=== PATIENT | male | born 1985 | race Two or more races ===

== ENCOUNTER 2016-10-17 05:21 | Inpatient (IN) | payer MEDICAID ==
[2016-10-17] VITALS (11 sets, daily range): BP systolic 124–172; BP diastolic 67–96; PULSE 46–166; RESP 11–26; TEMP 96.8–98.2; O2SAT 97–100
[~2016-10-17] VITALS: Ht 177.8 cm; Wt 126.1 kg
--- NOTE | 2016-10-17 05:22 | NUR ---
Patient AAO x4, sitting in bed, c/o left sided chest pain, non-radiating x 2 hrs. Patient states he was sleeping and the chest pain woke him up and he felt "alot of pressure" and nausea. Patient states he has had a cold in the past week. Patient is pale, and HR is tachycardic at 166bpm. Md notified. Will medicate per md orders.
--- NOTE | 2016-10-17 05:22 | NUR ---
Placed in room 02 . Placed on cardiac catheterization technologist, blood pressure machine and pulse oximeter. To gown for exam. Side rails up. Report given to SHAHEEN Valencia.
--- NOTE | 2016-10-17 05:25 | NUR ---
Patient stating he no longer has chest pain, states is more discomfort and the pain "went away." Patient HR remains tachycardic. Md aware.
--- NOTE | 2016-10-17 05:30 | NUR ---
CONOR Lopez at bedside examining patient.
[2016-10-17] MEDS ORDERED: METOPROLOL TARTRATE 5 MG/5 ML VIAL ONE (05:37)
[2016-10-17] MEDS ORDERED: METOPROLOL TARTRATE 5 MG/5 ML VIAL IVP ONE ×2 (05:45)
[2016-10-17 05:53] LABS: CALCIUM 9.3 mg/dL (8.4-11.0); CREATININE 0.96 mg/dL (0.55-1.30)
[2016-10-17 05:59] LABS: ALBUMIN 3.9 g/dL (3.4-4.8); TOTAL BILIRUBIN 0.4 mg/dL (0.0-1.0); TOTAL PROTEIN, SERUM 8.1 g/dL (6.4-8.3)
[2016-10-17 06:00] LABS: HEMATOCRIT 44.8 % (36-54); HEMOGLOBIN 15.2 g/dL (14.0-18.0); LYMPHOCYTES % (AUTO) 37.9 % (20.5-51.5); MEAN CORPUSCULAR HEMOGLOBIN 29 pg (27-31); MEAN CORPUSCULAR HGB CONC 34 % (32-36); MEAN CORPUSCULAR VOLUME 85 fL (79.0-98.0); MONOCYTES % (AUTO) 10.9 % (1.7-9.3); PLATELET COUNT (AUTO) 281 K/uL (130-430); RED BLOOD CELL COUNT(AUTO) 5.27 MIL/uL (4.2-6.2); RED CELL DISTRIBUTION WIDTH 13.1 % (9.0-15.0); WHITE BLOOD COUNT (AUTO) 8.1 K/uL (4.8-10.8)
[2016-10-17 06:01] LABS: BASOPHILS % (AUTO) 0.3 % (0.0-2.0); EOSINOPHILS # (AUTO) 0.3 K/uL (0.0-0.4); EOSINOPHILS % (AUTO) 3.1 % (0.0-4.0); LYMPHOCYTES # (AUTO) 3.1 K/uL (1.0-5.5); MONOCYTES # (AUTO) 0.9 K/uL (0.0-1.0); NEUTROPHILS # (AUTO) 3.8 K/uL (1.8-7.7); NEUTROPHILS % (AUTO) 47.8 % (40.0-70.0)
[2016-10-17 06:03] LABS: PROTHROMBIN TIME 10.6 SECS (9.5-12.5)
[2016-10-17] MEDS ORDERED: AMIODARONE HCL 150 MG/3ML VIAL ONE (06:04)
--- NOTE | 2016-10-17 06:29 | NUR ---
Patient amiodarone drip completed. Patient tolerated well. HR: 120. MD notified. Will continue to monitor.
[2016-10-17] MEDS ORDERED: AMIODARONE HCL IV ONE (06:30)
[2016-10-17] MEDS ORDERED: D5W IV ONE (06:30)
[2016-10-17] MEDS ORDERED: AMIODARONE HCL 900 MG in D5W 500 ML IV ONE ×2 (06:45→07:00)
--- NOTE | 2016-10-17 06:45 | NUR ---
Amiodarone 900mg vial unavailable. Calling linen room houseperson and ICU to obtain medication for continued patient treatment. MD aware. Will medicate when medication is available. Patient vital signs stable. Will continue to monitor.
--- NOTE | 2016-10-17 06:55 | NUR ---
CALLED ICU FOR PLACEMENT, NOTIFIED THERE ARE NO BEDS AVAILABLE, PATIENT WILL REMAIN IN ER ICU HOLD UNTIL FURTHER NOTICE.
[2016-10-17] MEDS ORDERED: *LOVENOX 1MG/KG Q12H/PHARMACY XX ONE (07:00)
--- NOTE | 2016-10-17 07:00 | NUR ---
REPORT GIVEN TO SHAHEEN MONIQUE: ALL CARE ENDORSED.
[2016-10-17] MEDS ORDERED: AMIODARONE HCL 900 MG/18 ML VIAL IV ONE (07:02)
--- NOTE | 2016-10-17 07:10 | NUR ---
Pt converted to normal sinus rhythm at [address] Romeor made aware. discontinued Amiodarone drip.
--- NOTE | 2016-10-17 07:15 | NUR ---
Patient converted to NSR on monitor, heart rate 60. Dr. Romero aware. Amnioderone drip held per Dr. Romero, EKG to be performed at this time. Dr. Reaves paged. Patient in stable condition.
--- NOTE | 2016-10-17 07:38 | NUR ---
Dr. Reaves returned call, stated to hold amnioderone at this time. Stated to keep patient as an ICU admit
--- NOTE | 2016-10-17 08:47 | NUR ---
Patient resting in bed awake, no distress noted. No chest pain, pressure or radiating pain at this time per patient
--- NOTE | 2016-10-17 09:38 | NUR ---
Patient's IV came out, catheter intact, no signs of injury/infiltration noted, no pain per patient, covered with gauze and secured. New IV 20g placed to right forearm using aseptic technique, 1 attempt, flushed with 5mL normal saline, covered with transparant dressign and secured.
--- NOTE | 2016-10-17 09:45 | NUR ---
Patient will be admitted to care of Dr. Reaves. Admitted to ICU unit. Will go to room 1. Summary report printed. Report given to Camryn JAMISON
--- NOTE | 2016-10-17 09:50 | NUR ---
ADMISSION NOTES. RECEIVED PT IN ICU BED 1, AWAKE AND ALERT, WITH CHIEF COMPLAINT OF HAVING PALPITATION, HE STATED "I FELT IT WHILE AT HOME,ABOUT 3 AM , I WENT INTO THE BATHROOM THEN URINATED AND WENT BACK IN BED THAT WAS WHEN I FELT THE PAIN, 5/10 SCALE." NOW HE DENIES ANY KIND OF BODY DISCOMFORTS. ORIENTATION TO SURROUNDINGS PROVIDED. VASQUEZ FOSS HELPED IN FILLING OUT INFORMATION.
--- NOTE | 2016-10-17 10:12 | NUR ---
Cardio consult called: For Dr. Traylor (Dr. Hancock is teacher adventure education), regarding uncontrolled Afib, ordered by Dr. Reaves.
[2016-10-17] MEDS: ENOXAPARIN SODIUM 120 MG/0.8 ML SYRINGE SUBCUT SCH ×2 (12:17→21:46)
--- NOTE | 2016-10-17 12:40 | NUR ---
MD. DR HARRISON CAME IN AND EXAMINED PT.
--- NOTE | 2016-10-17 13:30 | NUR ---
LOW HEART RATE. CARDIAC RHYTHM IN THE 40'S TO 50'S, APPROACHED PT, EYES CLOSED, RESPONSIVE TO VERBAL COMMAND, HEART RATE WENT TO 70'S WHILE PT SPEAKS, WILL CONTINUE TO MONITOR.
--- NOTE | 2016-10-17 17:40 | NUR ---
CONSULT. DR VICKERS, WEIGH BOSS, HERE AND WENT TO SEE PT.
--- NOTE | 2016-10-17 18:00 | NUR ---
TO TELEMETRY DEPT. PT TRANSPORTED VIA PORTABLE SYSTEMS MANAGER INTO ROOM 107-A, ACCOMPANIED BY HIS BEBEE, PT DENIES BODY DISCOMFORTS, REPORT GIVEN TO SHAHEEN CHANCE.
--- NOTE | 2016-10-17 18:10 | NUR ---
TRANSFER RECEIVED , SB-SR ON MONITOR. V/S IS STABLE. PATIENT AMBULATORY. PATIENT IS ORIENTED TO THE ROOM, INSTRUCTED TO USE CALL LIGHT FOR NEEDS, BED AT LOWEST POSITION, WILL CONTINUE TO MONITOR.
--- NOTE | 2016-10-17 19:50 | NUR ---
INITIAL NOTE Patient walking in the room. No acute distress. Denied of chest pain at this time. AO x 4. Respiration even and unlabored noted. skin warm and dry to touch. SL intact to RAC, no redness, no swelling. Discussed the safety issue, use call light when needs help, and plan of care, verbally understanding. Safety measure maintained. Call light within reached. Will continue to monitor.
--- NOTE | 2016-10-17 21:45 | NUR ---
ROUND Patient resting on the bed. No acute distress. Safety measure maintained. Call light within reached. Bed in low position, side rails up. Will continue to monitor.
[2016-10-17] MEDS: AMIODARONE HCL 200 MG TABLET PO SCH (21:47)
--- NOTE | 2016-10-17 23:50 | NUR ---
ROUND Patient resting on the bed with eyes closed. No acute distress. Safety measure maintained. Call light within reached. Bed in low position, side rails up. Will continue to monitor.
[2016-10-18 00:56] VITALS: BP 126/75; PULSE 67; RESP 16; TEMP 96.6; O2SAT 97
--- NOTE | 2016-10-18 01:00 | NUR ---
ROUND Patient sleeping at this time. No acute distress. Side rails up, bed in low position. Call light within reached. Continue to monitor.
--- NOTE | 2016-10-18 02:37 | NUR ---
ROUND Patient sleeping at this time. No acute distress. Bed in low position, side rails up. Call light within reached. Safety measure maintained. Will continue to monitor.
[2016-10-18 04:33] VITALS: BP 127/84; PULSE 58; RESP 18; TEMP 96.7; O2SAT 98
--- NOTE | 2016-10-18 04:37 | NUR ---
ROUND Patient resting on the bed with eyes closed. No acute distress. Call light within reached. Safety measure maintained. Bed in low position, side rails up. Continue to monitor.
--- NOTE | 2016-10-18 06:33 | NUR ---
CLOSING NOTE Patient sleeping in the bed comfortable. No acute distress. SL intact to RAC, no redness, no swelling. All needs met. Hourly rounding during shift. Safety measure maintained. Call light within reached. Bed in low position, side rails up. Sinus bradycardiac noted during night. Patient's pulse in 40s and 50s when sleeping. Patient's pulse in 60s when awake. Denied any chest pain or chest discomfort during shift. Will endorse to morning shift nurse.
--- NOTE | 2016-10-18 07:35 | NUR ---
AM ROUNDS Pt sitting at edge of bed..Denies chest pain or SOB...HL to RAC flushes well...Tolerating diet well...Pt anxious to go home...Call light/phone w/in reach...Will cont to monitor
[2016-10-18] MEDS ORDERED: ASPIRIN 81 MG TABLET(ECOTRIN) PO SCH (09:00)
[2016-10-18] MEDS: ENOXAPARIN SODIUM 120 MG/0.8 ML SYRINGE SUBCUT SCH (09:42)
[2016-10-18] MEDS: AMIODARONE HCL 200 MG TABLET PO SCH (09:42)
--- NOTE | 2016-10-18 10:00 | NUR ---
ROUNDS PT STABLE...NO CHANGES....AWAITING MD
--- NOTE | 2016-10-18 11:42 | NUR ---
ROUNDS Pt stable...sitting up in bed watching TV...Pt ambulates ad laverne in room with steady gait...Will cont to monitor
[2016-10-18 12:00] VITALS: BP 149/66; PULSE 56; RESP 21; TEMP 96.5; O2SAT 98
--- NOTE | 2016-10-18 15:00 | NUR ---
ROUNDS PT STABLE..NO CHANGES..WILL CONT TO MONITOR
[2016-10-18 16:00] VITALS: BP 139/96; PULSE 55; RESP 21; TEMP 97.3; O2SAT 98
--- NOTE | 2016-10-18 17:32 | NUR ---
ROUNDS PT STABLE..NO CHANGES...AWAITING MD
--- NOTE | 2016-10-18 18:25 | NUR ---
PT STABLE..AWAITING MD. PT ANXIOUS TO GO HOME
[2016-10-18 19:30] VITALS: BP 149/85; PULSE 56; RESP 16; TEMP 97.5; O2SAT 97
--- NOTE | 2016-10-18 19:36 | NUR ---
NOTES RECEIVED THE PT FROM THE DAY NURSE,PT A/A/OX4 FAMILY ARE AT THE BEDSIDE.PT WATCHING TV WITH NO COMPLAINTS MONITOR IN PLACE AND SHOWS SR.IV INTACT TO RT AC,NO C/O REDNESS OR SWELLING.CALL LIGHT WITHIN REACH,SAFETY MEASURES IN PROGRESS.PT HOPING TO GO HOME.WAITING FOR THE DOCTOR.WILL CONTINUE TO MONITOR.
--- NOTE | 2016-10-18 20:12 | NUR ---
NOTES DR HARRISON IS AT THE BEDSIDE.
[2016-10-18 20:33] VITALS: BP 149/85; PULSE 56; RESP 16; TEMP 97.5; O2SAT 97
--- NOTE | 2016-10-18 20:55 | NUR ---
NOTES ARM BAND ,MONITOR AND SL DC'D.RX X2 GIVEN AND EXPLAINED TO THE PT.WHO WILL FOLLOW UP WITH HIS HMO DOCTOR.
--- NOTE | 2016-10-18 21:05 | NUR ---
discharge pt discharged by wheel chair with discharge packet and rx,all questions answered.pt denies pain.
--- NOTE | 2016-10-21 11:39 | NUR ---
Discharge Follow Up Phone Calls: [employer] Officer called and left voice mails for pt ([phone]) on 10/19/16, 10/20/16, and 10/21/16; [employer] Officer contact information was provided and pt was encouraged to call back with any needs or concerns. Strike Warfare/Missile Systems Officer will continue to remain available for pt to call back, but no further follow up phone calls required at this time.
== END 2016-10-18 21:05 | disposition home or self-care (01) | DRG 201 ==
LOC: SED 05:21 → STU 06:57 → SIC 09:45 → SMU 18:00 → STU 19:51
PROVIDERS: ADMIT Family Medicine; ATTEND Family Medicine
DX: I48.91 Unspecified atrial fibrillation (principal); D68.69 Other thrombophilia; I45.6 Pre-excitation syndrome
CPT/HCPCS: 36415; 71010; 80053; 84484; 85025; 85610-TC; 85730-TC; 93005; 96374; 96375; 99285; J0282; J1650; J3490; J7030; J7050; J7060

== ENCOUNTER 2016-11-30 17:23 | Emergency (ER) | payer MEDICAID ==
[~2016-11-30] VITALS: Ht 177.8 cm; Wt 124.7 kg
[2016-11-30 17:35] VITALS: BP 153/91; PULSE 78; RESP 20; TEMP 98.2; O2SAT 98
--- NOTE | 2016-11-30 17:35 | NUR ---
Jamaal mauricio in EDM - 11/30/16 at 1844 by [email or web address] Pt brought by self, c/o R shoulder pain after skateboarding, no deformities, skin pink and warm, cap refill <3, VSS
--- NOTE | 2016-11-30 17:55 | NUR ---
Tatiana Adams PIPEFITTER performing MS at triage room
--- NOTE | 2016-11-30 17:55 | NUR ---
Pt brought by self, c/o R shoulder pain after skateboarding, no deformities, skin pink and warm, cap refill <3, VSS
[2016-11-30] MEDS ORDERED: IBUPROFEN 800 MG TABLET PO ONE (18:15)
--- NOTE | 2016-11-30 18:30 | NUR ---
Patient to ER bed CH1 to gown for evaluation. Side rails up.
[2016-11-30 18:45] VITALS: BP 148/91; PULSE 78; RESP 20; TEMP 98.2; O2SAT 98
--- NOTE | 2016-11-30 18:45 | NUR ---
Patient given written and verbal discharge instructions and verbalizes understanding. ER MD discussed with patient the results and treatment provided. Patient in stable condition. ID arm band removed. Rx of Tramadol and tylenol given. Patient educated on pain management and to follow up with PMD. Pain Scale 0/10. Opportunity for questions provided and answered.
== END 2016-11-30 18:45 | disposition home or self-care (01) ==
LOC: SED 17:23
DX: S43.401A Unspecified sprain of right shoulder joint, initial encounter (principal); I48.91 Unspecified atrial fibrillation; V00.131A Fall from skateboard, initial encounter; Y93.51 Activity, roller skating (inline) and skateboarding; Y92.89 Other specified places as the place of occurrence of the external cause; Y99.8 Other external cause status
CPT/HCPCS: 73030; 99284

== ENCOUNTER 2018-10-26 09:46 | Emergency (ER) | payer MEDICAID ==
[~2018-10-26] VITALS: Ht 180.3 cm; Wt 117.9 kg
[2018-10-26 09:51] VITALS: BP_SYST 150
[2018-10-26 11:16] VITALS: BP_SYST 142
== END 2018-10-26 11:16 | disposition home or self-care (01) ==
LOC: SED 09:46
DX: M94.0 Chondrocostal junction syndrome [Tietze] (principal); I48.91 Unspecified atrial fibrillation; R03.0 Elevated blood-pressure reading, without diagnosis of hypertension
CPT/HCPCS: 71100; 93005; 99283

== ENCOUNTER 2019-12-01 01:31 | Emergency (ER) | payer SELFPAY ==
[~2019-12-01] VITALS: Ht 177.8 cm; Wt 120.2 kg
[2019-12-01 01:35] VITALS: BP_SYST 155
--- NOTE | 2019-12-01 01:35 | NUR ---
Patient to ER bed 02 to gown for evaluation. Side rails up.
--- NOTE | 2019-12-01 01:36 | NUR ---
Patient AOx4, ambulatory, presents to ED with complaint of left-sided sharp intermittent CP starting at 0030. Patient states pain 5/10 at this time. Patient further reports that he was previously diagnosed with a-fib but did not follow up with PCP. Patient underwent a heart ablation for WPW in 1995. Patient in no acute respiratory distress. at bedside.
--- NOTE | 2019-12-01 01:39 | NUR ---
ER Dr. CONCEPCION at bedside examining patient.
--- NOTE | 2019-12-01 01:44 | NUR ---
# 18 gauge angiocath placed to RAC. Use of asceptic technique. Opsite placed over site. Blood return noted. Blood for lab drawn from site. Flushed with 10 cc of normal saline. No evidence of infiltration noted. Patient tolerated well.
[2019-12-01] MEDS ORDERED: ASPIRIN 81 MG TAB.CHEW PO ONE (01:45)
--- NOTE | 2019-12-01 01:59 | NUR ---
X-ray performed at the bedside.Pt tolerated well.
[2019-12-01 02:05] LABS: BASOPHILS % (AUTO) 0.8 % (0.0-2.0); EOSINOPHILS # (AUTO) 0.3 K/uL (0.0-0.4); EOSINOPHILS % (AUTO) 4.7 % (0.0-4.0); HEMATOCRIT 44.1 % (36-54); HEMOGLOBIN 15.4 g/dL (14.0-18.0); LYMPHOCYTES # (AUTO) 2.1 K/uL (1.0-5.5); LYMPHOCYTES % (AUTO) 35.6 % (20.5-51.5); MEAN CORPUSCULAR HEMOGLOBIN 32 pg (27-31); MEAN CORPUSCULAR HGB CONC 35 % (32-36); MEAN CORPUSCULAR VOLUME 91 fL (79.0-98.0); MONOCYTES # (AUTO) 1.1 K/uL (0.0-1.0); MONOCYTES % (AUTO) 19.6 % (1.7-9.3); NEUTROPHILS # (AUTO) 2.3 K/uL (1.8-7.7); NEUTROPHILS % (AUTO) 39.3 % (40.0-70.0); PLATELET COUNT (AUTO) 191 K/uL (130-430); RED BLOOD CELL COUNT(AUTO) 4.85 MIL/uL (4.2-6.2); RED CELL DISTRIBUTION WIDTH 13.6 % (9.0-15.0); WHITE BLOOD COUNT (AUTO) 5.8 K/uL (4.8-10.8)
[2019-12-01 02:14] LABS: CALCIUM 8.5 mg/dL (8.4-11.0); CREATININE 0.85 mg/dL (0.55-1.30); POTASSIUM 3.7 mmol/L (3.5-5.1)
[2019-12-01] MEDS ORDERED: DILTIAZEM HCL 25 MG/5 ML VIAL IVP ONE (02:15)
[2019-12-01 02:16] LABS: INR 0.9 (0.80-1.20); PROTHROMBIN TIME 9.5 SECS (9.5-12.5)
[2019-12-01 02:22] LABS: ALBUMIN 3.9 g/dL (3.4-4.8); TOTAL BILIRUBIN 0.4 mg/dL (0.0-1.0)
[2019-12-01] MEDS ORDERED: AMIODARONE HCL 150 MG in D5W 97 ML IV ONE (02:45)
--- NOTE | 2019-12-01 02:50 | NUR ---
amiodarone 150 mg started at 600 ml hr. patient tolerating well. will continue to monitor.
[2019-12-01 02:53] LABS: CKMB RELATIVE INDEX 1.3 (0.0-2.9); CREATINE KINASE MB 9.8 ng/mL (0-3.6)
[2019-12-01] MEDS ORDERED: AMIODARONE HCL 150 MG/3ML VIAL ONE (02:58)
--- NOTE | 2019-12-01 03:02 | NUR ---
infusion completed. hr 158 RR14 O2 saturation 99% BP 117/70 MD notified. will continue to monitor
--- NOTE | 2019-12-01 03:20 | NUR ---
Consent signed for procedure.
--- NOTE | 2019-12-01 03:26 | NUR ---
synchronized cardioversion at 200J. Patient converted to normal sinus. HR 57 RR18 O2 100% BP 128/75. Will Continue to monitor.
[2019-12-01] MEDS ORDERED: MIDAZOLAM HCL 5 MG/5 ML VIAL IVP ONE (03:30)
--- NOTE | 2019-12-01 03:35 | NUR ---
report Recieved from SHAHEEN Villalta. All care assumed
--- NOTE | 2019-12-01 03:51 | NUR ---
Pt refused Urine collection
--- NOTE | 2019-12-01 04:12 | NUR ---
Pt resting in ed bed comfortably. No distress at this time
--- NOTE | 2019-12-01 04:30 | NUR ---
Note luly in EDM - 12/01/19 at 0646 by [email or web address] Pt tolerating IV antibiotics well. No s/s of adversse effects or infiltration
[2019-12-01 05:00] VITALS: BP_SYST 116
--- NOTE | 2019-12-01 05:00 | NUR ---
Patient given written and verbal discharge instructions and verbalizes understanding. ER MD discussed with patient the results and treatment provided. Patient in stable condition. ID arm band removed. IV catheter removed intact and dressing applied, no active bleeding. No RX given. Patient educated on pain management and to follow up with PMD. Pain Scale 0/10. Opportunity for questions provided and answered.
--- NOTE | 2019-12-01 05:12 | NUR ---
Note undone in EDM - 12/01/19 at 0645 by [email or web address] Pt resting in ed bed comfortably. No distress.
== END 2019-12-01 05:00 | disposition home or self-care (01) ==
LOC: SED 01:31
DX: I48.91 Unspecified atrial fibrillation (principal); R07.89 Other chest pain
CPT/HCPCS: 36415; 71045; 80053; 82550; 82553; 83880; 84484; 85025; 85379; 85610; 93005; 96374; 96375; 99285; J0282; J2250

== ENCOUNTER 2022-05-07 20:41 | Inpatient (IN) | payer SELFPAY ==
[~2022-05-07] VITALS: Ht 177.8 cm; Wt 121.1 kg
[2022-05-07] MEDS ORDERED: ASPIRIN 81 MG TAB.CHEW PO ONE (20:45)
[2022-05-07 20:46] VITALS: BP_SYST 159
--- NOTE | 2022-05-07 20:49 | NUR ---
PATIENT STATES HE HAS HAD CHEST PAIN AND DIZZINESS X 2 DAYS WITH HISTORY OF AFIB BUT NOT ANY MEDICATION FOR IT HE IS IN BETWEEN DOCTORS. NO OTHER SYMPTOMS. PATIENT CLEAR BILATERALLY, ABLE TO SPEAK IN FULL SENTENCES.
--- NOTE | 2022-05-07 21:00 | NUR ---
PATIENT PLACED INTO BED 5 AWAITING TO BE SEEN.
--- NOTE | 2022-05-07 21:05 | NUR ---
Pt to bed 5 w/ c/o midsternal chest pain 6/10 since last night worsening today. Pt states +N/-V, room spinning with standing. Pt has skin discoloration w/ pallor and moderate jaundice. made aware.
[2022-05-07] MEDS ORDERED: ASPIRIN 81 MG TAB.CHEW ONE (21:10)
--- NOTE | 2022-05-07 21:10 | NUR ---
MD Velasquez at bedside
[2022-05-07 21:16] LABS: BASOPHILS # (AUTO) 0.2 K/uL (0.0-0.2); BASOPHILS % (AUTO) 2.7 % (0.0-2.0); EOSINOPHILS # (AUTO) 0.2 K/uL (0.0-0.4); EOSINOPHILS % (AUTO) 3.7 % (0.0-4.0); LYMPHOCYTES # (AUTO) 2.2 K/uL (1.0-5.5); LYMPHOCYTES % (AUTO) 38.6 % (20.5-51.5); MEAN CORPUSCULAR HEMOGLOBIN 16 pg (27-31); MEAN CORPUSCULAR HGB CONC 29 % (32-36); MEAN CORPUSCULAR VOLUME 53 fL (79.0-98.0); MONOCYTES # (AUTO) 0.5 K/uL (0.0-1.0); MONOCYTES % (AUTO) 9.1 % (1.7-9.3); NEUTROPHILS # (AUTO) 2.7 K/uL (1.8-7.7); NEUTROPHILS % (AUTO) 45.9 % (40.0-70.0); PLATELET COUNT (AUTO) 300 K/uL (130-430); RED BLOOD CELL COUNT(AUTO) 3.69 MIL/uL (4.2-6.2); RED CELL DISTRIBUTION WIDTH 19.5 % (9.0-15.0); WHITE BLOOD COUNT (AUTO) 5.8 K/uL (4.8-10.8)
[2022-05-07 21:21] LABS: HEMOGLOBIN 5.7 g/dL (14.0-18.0)
[2022-05-07 21:22] LABS: HEMATOCRIT 19.6 % (36-54)
--- NOTE | 2022-05-07 21:33 | NUR ---
COVID-19 SOCRATES SWAB OBTAINED AND SENT TO THE LAB.
[2022-05-07 21:44] LABS: ANION GAP 10 (5-15); CALCIUM 8.9 mg/dL (8.4-11.0); CHLORIDE 104 mmol/L (98-107); CREATININE 0.91 mg/dL (0.55-1.30); GLUCOSE 101 mg/dL (70-99); POTASSIUM 3.8 mmol/L (3.5-5.1); SODIUM SERUM 140 mmol/L (136-145); UREA NITROGEN, BLOOD 17 mg/dL (8-21)
--- NOTE | 2022-05-07 21:45 | NUR ---
MD Velasquez at bedside explaining PRBC transfusion necessity to patient
[2022-05-07 21:52] LABS: ALANINE AMINOTRANSFERASE 26 U/L (12-78); ALBUMIN 4.2 g/dL (3.4-4.8); ASPARTATE AMINOTRANSFERASE 21 U/L (10-37); TOTAL BILIRUBIN 0.9 mg/dL (0.0-1.0)
[2022-05-07 21:55] LABS: GFR AFRICAN AMERICAN 121 mL/min (>90)
[2022-05-07] MEDS ORDERED: ACETAMINOPHEN 325 MG TABLET PO PRN (22:00)
[2022-05-07] MEDS ORDERED: MORPHINE 2 MG/ML INJ. SYRINGE IVP PRN ×2 (22:00)
[2022-05-07] MEDS ORDERED: ZOLPIDEM TARTRATE 5 MG TABLET PO PRN (22:00)
[2022-05-07] MEDS ORDERED: MUPIROCIN 2% TOPICAL OINTMENT 22 GM NS PRN (22:00)
[2022-05-07] MEDS ORDERED: ONDANSETRON HCL 4 MG/2 ML VIAL IVP PRN (22:00)
[2022-05-07] MEDS ORDERED: MAGNESIUM SULFATE 50 ML IV PRN (22:00)
[2022-05-07] MEDS ORDERED: DOCUSATE SODIUM 100 MG CAPSULE PO PRN (22:00)
[2022-05-07] MEDS ORDERED: POTASSIUM CHLORIDE 20 MEQ TAB.PRT.SR PO PRN (22:00)
--- NOTE | 2022-05-07 22:06 | NUR ---
Admit bed requested Patient will be admitted to care of . Admitted to TELE unit. Diagnosis CHEST PAIN Inpatient (Yes or No) YES Observation (Yes or No) NO Orientation concerns or request close to nursing station (Yes or No) NO Covid Status PENDING On vent or bipap NO Isolation requirements NO Needs a sitter NO From Home (Yes or if No enter name of facility) YES Requires Dialysis (Yes or No) NO Med Rec Completed (Yes of No) PENDING
--- NOTE | 2022-05-07 22:34 | NUR ---
Blood transfusion consent signed by myself, MD, and patient at this time. Required lab forms walked to lab at this time and handed to current CLS.
--- NOTE | 2022-05-07 22:35 | NUR ---
Medication reconciliation completed with information provided by pt at the bedside. Any prior medication reconciliation on file was reviewed and corrected.
[2022-05-07 23:05] VITALS: BP_SYST 152
[2022-05-08] VITALS (8 sets, daily range): BP systolic 128–150
--- NOTE | 2022-05-08 00:16 | NUR ---
CONSULTATION FOR DR. TRENTON SALINAS IS GRAPHIC PRE PRESS TRADES WORKER CONSULT OF GI BLEED ORDER BY DR. ALLAN SPOKE WITH ZAK
--- NOTE | 2022-05-08 00:20 | NUR ---
CONSULTATION FOR FOR CONSULT OF CHEST PAIN ORDER BY DR. JERRELL CRESPO
--- NOTE | 2022-05-08 06:49 | NUR ---
CLOSING NOTE BLOOD TRANSFUSING AT THIS TIME. PATIENT TOLERATING WELL. IV SITE PATENT, NO SIGNS OF INFILTRATION OR INFECTION NOTED. PATIENT DENIES PAIN. BREATHING EVEN AND UNLABORED. ALL NEEDS MET THROUGHOUT SHIFT. FALL, SAFETY PRECAUTIONS MAINTAINED THROUGHOUT SHIFT. WILL CONTINUE TO MONITOR UNTIL PATIENT CARE IS ENDORSED TO ONCOMING DAYSHIFT NURSE.
--- NOTE | 2022-05-08 07:59 | NUR ---
Report received from SHAHEEN Morrison for continuity of care. Patient stable condition. No distress noted. Lab to come draw in a little bit.
[2022-05-08 08:29] LABS: BASOPHILS # (AUTO) 0.1 K/uL (0.0-0.2); BASOPHILS % (AUTO) 2.7 % (0.0-2.0); EOSINOPHILS # (AUTO) 0.3 K/uL (0.0-0.4); LYMPHOCYTES # (AUTO) 1.4 K/uL (1.0-5.5); LYMPHOCYTES % (AUTO) 33.6 % (20.5-51.5); MEAN CORPUSCULAR HEMOGLOBIN 18 pg (27-31); MEAN CORPUSCULAR HGB CONC 31 % (32-36); MEAN CORPUSCULAR VOLUME 58 fL (79.0-98.0); MONOCYTES # (AUTO) 0.5 K/uL (0.0-1.0); MONOCYTES % (AUTO) 12.6 % (1.7-9.3); NEUTROPHILS # (AUTO) 1.9 K/uL (1.8-7.7); NEUTROPHILS % (AUTO) 45.1 % (40.0-70.0); PLATELET COUNT (AUTO) 233 K/uL (130-430); RED BLOOD CELL COUNT(AUTO) 3.74 MIL/uL (4.2-6.2); RED CELL DISTRIBUTION WIDTH 21.5 % (9.0-15.0); WHITE BLOOD COUNT (AUTO) 4.3 K/uL (4.8-10.8)
[2022-05-08 08:50] LABS: HEMOGLOBIN 6.6 g/dL (14.0-18.0)
[2022-05-08 08:51] LABS: HEMATOCRIT 21.6 % (36-54)
[2022-05-08 09:21] LABS: CALCIUM 8.7 mg/dL (8.4-11.0); CREATININE 0.89 mg/dL (0.55-1.30); POTASSIUM 4.1 mmol/L (3.5-5.1)
--- NOTE | 2022-05-08 10:00 | NUR ---
Reported to Dr. Joshi critical HGB lab value. New orders noted and carried out.
--- NOTE | 2022-05-08 11:20 | NUR ---
BLOOD TRANSFUSION STARTED AND DOUBLE CHECKED WITH SHAHEEN JONES. No distress noted. Vital signs stable.
[2022-05-08 12:50] LABS: TOTAL IRON BIND. CAPACITY 486 ug/dL (250-450)
--- NOTE | 2022-05-08 14:05 | NUR ---
Blood transfusion ended. Patient vital signs stable. No distress noted. Patient denies shortness of breath or redness, itching. Patient aware of blood draw one hour after to check HGB
[2022-05-08 15:41] LABS: BASOPHILS # (AUTO) 0.1 K/uL (0.0-0.2); BASOPHILS % (AUTO) 1.6 % (0.0-2.0); EOSINOPHILS # (AUTO) 0.2 K/uL (0.0-0.4); EOSINOPHILS % (AUTO) 6.2 % (0.0-4.0); HEMATOCRIT 24.9 % (36-54); LYMPHOCYTES # (AUTO) 1.4 K/uL (1.0-5.5); LYMPHOCYTES % (AUTO) 34.7 % (20.5-51.5); MEAN CORPUSCULAR HEMOGLOBIN 19 pg (27-31); MEAN CORPUSCULAR HGB CONC 31 % (32-36); MEAN CORPUSCULAR VOLUME 60 fL (79.0-98.0); MONOCYTES # (AUTO) 0.5 K/uL (0.0-1.0); MONOCYTES % (AUTO) 12.9 % (1.7-9.3); NEUTROPHILS # (AUTO) 1.8 K/uL (1.8-7.7); NEUTROPHILS % (AUTO) 44.6 % (40.0-70.0); PLATELET COUNT (AUTO) 255 K/uL (130-430); RED BLOOD CELL COUNT(AUTO) 4.14 MIL/uL (4.2-6.2); RED CELL DISTRIBUTION WIDTH 28.4 % (9.0-15.0)
[2022-05-08 15:47] LABS: HEMOGLOBIN 7.6 g/dL (14.0-18.0)
[2022-05-08] MEDS ORDERED: BISACODYL 5 MG TABLET.DR (DULCOLAX) PO ONE (17:00)
[2022-05-08] MEDS ORDERED: GOLYTELY / COLYTE SOLUTION 4 LITERS PO ONE (18:00)
--- NOTE | 2022-05-08 19:15 | NUR ---
OPENING NOTE BEDSIDE REPORT RECEIVED FROM DAYSHIFT NURSE. PATIENT RECEIVED SITTING ON CHAIR AT BEDSIDE. NO S/S OF ACUTE DISTRESS. BREATHING EVEN AND UNLABORED. PATIENT DENIES PAIN. IV SITE IS PATENT, NO SIGNS OF INFILTRATION OR INFECTION NOTED. CALL LIGHT WITH PATIENT. BED LOCKED AND AT LOWEST POSITION. WILL CONTINUE TO MONITOR.
--- NOTE | 2022-05-08 19:22 | NUR ---
rEPORT GIVEN TO SHAHEEN Morrison for continuity of care. Patient stable condition. No distress noted.
--- NOTE | 2022-05-08 20:00 | NUR ---
EDUCATION PATIENT EDUCATED ON GOLYTELY, COVERED BENEFITS AND PLAN TO FINISH BY MIDNIGHT. EDUCATED ON NPO STATUS AFTER MIDNIGHT. EDUCATED ON TAP WATER ENEMA IN AM. PATIENT VERBALIZED UNDERSTANDING.
[2022-05-09] VITALS (7 sets, daily range): BP systolic 114–149
--- NOTE | 2022-05-09 03:34 | NUR ---
FINISHED GOLYTELY/REFUSING TAP WATER ENEMA GOLYTELY FINISHED AT THIS TIME. PATIENT TOLERATED WELL. BM IS DARK RED, WITH LITTLE SEDIMENTS. PATIENT EDUCATED ON TAP WATER ENEMA AND RN SUGGESTED TO HAVE IT DONE BY 0600. PATIENT STATED HE WANTS TO GET SOME REST AND WANTS TO SLEEP IN. CHARGE NURSE MADE AWARE, WILL ENDORSE TO DAYSHIFT NURSE.
--- NOTE | 2022-05-09 05:19 | NUR ---
ROUNDS PATIENT IN BED, RESTING. NO SIGNS OF DISCOMFORT NOTED. CHEST RISE AND FALL EVEN BILATERALLY. CALL LIGHT WITH PATIENT. BED LOCKED AND AT LOWEST POSITION. WILL CONTINUE TO MONITOR.
--- NOTE | 2022-05-09 06:15 | NUR ---
CLOSING NOTE PATIENT IN BED AT THIS TIME. RESTING. NO S/S OF ACUTE DISTRESS. BREATHING IS EVEN AND UNLABORED. IV SITE IS PATENT, NO SIGNS OF INFILTRATION OR INFECTION NOTED. ALL NEEDS MET THROUGHOUT SHIFT. FALL, SAFETY PRECAUTIONS MAINTAINED THROUGHOUT SHIFT. WILL CONTINUE TO MONITOR UNTIL PATIENT CARE IS ENDORSED TO ONCOMING DAYSHIFT NURSE.
[2022-05-09 07:07] LABS: HEMATOCRIT 22.9 % (36-54); HEMOGLOBIN 7.3 g/dL (14.0-18.0); MEAN CORPUSCULAR HEMOGLOBIN 19 pg (27-31); MEAN CORPUSCULAR HGB CONC 32 % (32-36); MEAN CORPUSCULAR VOLUME 60 fL (79.0-98.0); PLATELET COUNT (AUTO) 238 K/uL (130-430); RED BLOOD CELL COUNT(AUTO) 3.83 MIL/uL (4.2-6.2); RED CELL DISTRIBUTION WIDTH 26.5 % (9.0-15.0); WHITE BLOOD COUNT (AUTO) 5.3 K/uL (4.8-10.8)
[2022-05-09 07:08] LABS: CALCIUM 8.8 mg/dL (8.4-11.0); CREATININE 0.83 mg/dL (0.55-1.30); POTASSIUM 3.8 mmol/L (3.5-5.1)
[2022-05-09 07:09] LABS: INR 1.1 (0.80-1.20)
[2022-05-09 07:22] LABS: ALBUMIN 3.7 g/dL (3.4-4.8); TOTAL BILIRUBIN 1.9 mg/dL (0.0-1.0)
[2022-05-09 08:07] LABS: FOLATE (FOLIC ACID) 16.3 ng/mL (>3.0)
[2022-05-09 09:30] LABS: LYMPHOCYTES % (AUTO) 32.5 % (20.5-51.5); MONOCYTES % (AUTO) 13.3 % (1.7-9.3); NEUTROPHILS % (AUTO) 46.4 % (40.0-70.0)
[2022-05-09 09:31] LABS: ATYPICAL LYMPHOCYTES % 0 % (0-0); BAND % (MANUAL) 40 % (0-6); BASOPHILS % (AUTO) 2.1 % (0.0-2.0); BASOPHILS % (MANUAL) 4 % (0-2); EOSINOPHILS % (AUTO) 5.7 % (0.0-4.0); EOSINOPHILS % (MANUAL) 6 % (0-7); LYMPHOCYTES % (MANUAL) 21 % (20-46); MONOCYTES % (MANUAL) 15 % (0-11)
--- NOTE | 2022-05-09 12:52 | NUR ---
Dr. Meade made rounds to see patient. No new orders at this time.
[2022-05-09] MEDS ORDERED: SIMETHICONE 40 MG/0.6 ML ML ONE (14:21)
--- NOTE | 2022-05-09 15:12 | NUR ---
INFORMED RN ALEXANDRA THAT THE PATIENT'S TELE MONITOR NEEDS BATTERY REPLACED AMBROSIO BEEN OFF MONITOR SINCE [id number]
--- NOTE | 2022-05-09 15:36 | NUR ---
patient went for colonoscopy. According to GI, they are ok with patient taking golytely. Patient to hold fleet enema.
[2022-05-09] MEDS: MEPERIDINE 100 MG INJ. 100 MG/ML VIAL ONE ×3 (15:38→15:44)
[2022-05-09] MEDS: MIDAZOLAM HCL 5 MG/5 ML VIAL ONE ×4 (15:38→16:13)
[2022-05-09] MEDS ORDERED: MIDAZOLAM HCL 5 MG/5 ML VIAL ONE (16:07)
[2022-05-09] MEDS ORDERED: MEPERIDINE 100 MG INJ. 100 MG/ML VIAL ONE (16:07)
[2022-05-09] MEDS ORDERED: BENZOCAINE 20% 0.5mL UD SPRAY MM ONE (16:07)
--- NOTE | 2022-05-09 17:06 | NUR ---
Patient came back from GI procedure.
--- NOTE | 2022-05-09 19:00 | NUR ---
Report given to SHAHEEN Miller for continuity of care. Patient in stable condition. No distress noted.
--- NOTE | 2022-05-09 19:15 | NUR ---
OPENING NOTE RECEIVED REPORT FROM DAYSHIFT NURSE. PATIENT IN BED, AWAKE, FINISHING DINNER. NO S/S OF ACUTE DISTRESS. BREATHING EVEN AND UNLABORED. IV SITE PATENT, NO SIGNS OF INFILTRATION OR INFECTION NOTED. CALL LIGHT WITH PATIENT. BED IS LOCKED AND AT LOWEST POSITION. WILL CONTINUE TO MONITOR.
[2022-05-10] VITALS: BP_SYST 134
--- NOTE | 2022-05-10 06:16 | NUR ---
CLOSING NOTE PATIENT IN BED, RESTING, NO S/S OF ACUTE DISTRESS NOTED. BREATHING EVEN AND UNLABORED. IV SITE PATENT. ALL NEEDS MET THROUGHOUT SHIFT. FALL, SAFETY PRECAUTIONS MAINTAINED THROUGHOUT SHIFT. WILL CONTINUE TO MONITOR UNTIL PATIENT CARE IS ENDORSED TO ONCOMING DAYSHIFT NURSE.
[2022-05-10 07:05] LABS: BASOPHILS # (AUTO) 0.1 K/uL (0.0-0.2); BASOPHILS % (AUTO) 1.2 % (0.0-2.0); EOSINOPHILS # (AUTO) 0.3 K/uL (0.0-0.4); EOSINOPHILS % (AUTO) 4.6 % (0.0-4.0); HEMATOCRIT 23.7 % (36-54); HEMOGLOBIN 7.4 g/dL (14.0-18.0); LYMPHOCYTES # (AUTO) 1.8 K/uL (1.0-5.5); MEAN CORPUSCULAR HEMOGLOBIN 19 pg (27-31); MEAN CORPUSCULAR HGB CONC 31 % (32-36); MEAN CORPUSCULAR VOLUME 60 fL (79.0-98.0); MONOCYTES # (AUTO) 0.7 K/uL (0.0-1.0); MONOCYTES % (AUTO) 10.8 % (1.7-9.3); NEUTROPHILS # (AUTO) 3.3 K/uL (1.8-7.7); NEUTROPHILS % (AUTO) 53.4 % (40.0-70.0); PLATELET COUNT (AUTO) 238 K/uL (130-430); RED BLOOD CELL COUNT(AUTO) 3.96 MIL/uL (4.2-6.2); RED CELL DISTRIBUTION WIDTH 27.5 % (9.0-15.0); WHITE BLOOD COUNT (AUTO) 6.1 K/uL (4.8-10.8)
[2022-05-10 07:13] LABS: CALCIUM 8.8 mg/dL (8.4-11.0); CREATININE 0.99 mg/dL (0.55-1.30); POTASSIUM 3.9 mmol/L (3.5-5.1)
[2022-05-10 07:51] VITALS: BP_SYST 137
--- NOTE | 2022-05-10 09:15 | NUR ---
CONSULT SURGERY HEMORRHOIDECTOMY KADE VIDAL [phone] CALLED OFFICE NO EXCHANGE LEFT VM
[2022-05-10 12:00] VITALS: BP_SYST 124
[2022-05-10 16:00] VITALS: BP_SYST 136
[2022-05-10 20:00] VITALS: BP_SYST 150
[2022-05-10] MEDS ORDERED: KCL 20 mEq in D5/0.45NS 1000mL 1,000 ML IV SCH (20:45)
[2022-05-10 22:09] VITALS: BP_SYST 138
--- NOTE | 2022-05-10 22:09 | NUR ---
Paged Dr Subramanian the surgeon patient refusing for surgery
--- NOTE | 2022-05-10 22:11 | NUR ---
Dr. Carlos informed Addendum: 05/10/22 at 2212 by Carol Apodaca RN patient refusing for surgery
--- NOTE | 2022-05-10 22:45 | NUR ---
PT CALLED : PT LEFT AMA, NOTICED THAT PTS PAIR OF SOCKS ARE AT BEDSIDE ,CALLED PT ON [phone] , TALKED TO HIM AND INFORMED HIM THAT HE LEFT HIS PAIR OF SOCKS HERE AT THE HOSPITAL; PT REQUESTED TO TRASH IT , PER PTS REQUEST SOCKS TRASHED .
== END 2022-05-10 22:35 | disposition left against medical advice (07) | DRG 393 ==
LOC: SED 20:41 → STU 21:51 → SMU 05-10 13:30
PROVIDERS: ADMIT Family Medicine; ATTEND Family Medicine
PROC: 30233N1 Transfusion of Nonautologous Red Blood Cells into Peripheral Vein, Percutaneous Approach (ICD-10-PCS; 2022-05-08)
PROC: 0DJD8ZZ Inspection of Lower Intestinal Tract, Via Natural or Artificial Opening Endoscopic (ICD-10-PCS; 2022-05-09)
PROC: 0DB98ZX Excision of Duodenum, Via Natural or Artificial Opening Endoscopic, Diagnostic (ICD-10-PCS; principal; 2022-05-09 15:00)
PROC: 0DB78ZX Excision of Stomach, Pylorus, Via Natural or Artificial Opening Endoscopic, Diagnostic (ICD-10-PCS; 2022-05-09 15:00)
DX: K64.5 Perianal venous thrombosis (principal); K29.71 Gastritis, unspecified, with bleeding; D62 Acute posthemorrhagic anemia; I48.20 Chronic atrial fibrillation, unspecified; E66.01 Morbid (severe) obesity due to excess calories; I45.6 Pre-excitation syndrome; I48.0 Paroxysmal atrial fibrillation; Z20.822 Contact with and (suspected) exposure to COVID-19; Z79.899 Other long term (current) drug therapy; Z68.38 Body mass index [BMI] 38.0-38.9, adult
CPT/HCPCS: 36415; 36430; 43239; 45378; 71045; 80048; 80053; 82607; 82728; 82746; 83540; 83550; 83735; 83880; 84484; 85007; 85025; 85027; 85379; 85610-TC; 86886; 86900; 86901; 86920; 87081; 88305; 88312; 88313; 93005; 99285; G0378; J2175; J2250; P9021

== ENCOUNTER 2023-10-13 17:15 | Emergency (ER) | payer BC ==
[~2023-10-13] VITALS: Ht 177.8 cm; Wt 136.1 kg
[2023-10-13 17:30] VITALS: PULSE 158; RESP 18; TEMP 98.9; O2SAT 97
[2023-10-13] MEDS ORDERED: dilTIAZem HCL IVP 5 MG/ML VIAL IVP ONE ×2 (17:45→18:15)
[2023-10-13] MEDS ORDERED: ASPIRIN 325 MG TABLET PO ONE (17:45)
[2023-10-13 18:25] LABS: BASOPHILS # (AUTO) 0.1 K/uL (0.0-0.2); BASOPHILS % (AUTO) 0.7 % (0.0-2.0); EOSINOPHILS # (AUTO) 0.4 K/uL (0.0-0.4); EOSINOPHILS % (AUTO) 4.6 % (0.0-4.0); HEMATOCRIT 42.3 % (36-54); HEMOGLOBIN 14.4 g/dL (14.0-18.0); LYMPHOCYTES # (AUTO) 1.5 K/uL (1.0-5.5); LYMPHOCYTES % (AUTO) 18.8 % (20.5-51.5); MEAN CORPUSCULAR HEMOGLOBIN 28 pg (27-31); MEAN CORPUSCULAR HGB CONC 34 % (32-36); MEAN CORPUSCULAR VOLUME 81 fL (79.0-98.0); MONOCYTES # (AUTO) 0.8 K/uL (0.0-1.0); MONOCYTES % (AUTO) 10.2 % (1.7-9.3); NEUTROPHILS # (AUTO) 5.3 K/uL (1.8-7.7); NEUTROPHILS % (AUTO) 65.7 % (40.0-70.0); PLATELET COUNT (AUTO) 302 K/uL (130-430); RED BLOOD CELL COUNT(AUTO) 5.23 MIL/uL (4.2-6.2); RED CELL DISTRIBUTION WIDTH 15.8 % (9.0-15.0); WHITE BLOOD COUNT (AUTO) 8.1 K/uL (4.8-10.8)
[2023-10-13 18:26] LABS: PROTHROMBIN TIME 10.2 SECS (9.5-12.5)
[2023-10-13] MEDS ORDERED: LABETALOL HCL 20 MG/4 ML CARTRIDGE IVP ONE (18:30)
[2023-10-13 18:37] LABS: ANION GAP 10 (5-15); CALCIUM 8.4 mg/dL (8.4-11.0); CARBON DIOXIDE 26 mmol/L (23-29); CHLORIDE 104 mmol/L (98-107); CREATININE 0.98 mg/dL (0.55-1.30); FREE T4 (FREE THYROXINE) 0.9 ng/dl (0.8-1.5); GFR AFRICAN AMERICAN 111 mL/min (>90); GFR NON AFRICAN-AMERICAN 91 mL/min (>90); GLUCOSE 126 mg/dL (74-106); POTASSIUM 3.9 mmol/L (3.5-5.1); SODIUM SERUM 140 mmol/L (136-145); UREA NITROGEN, BLOOD 16 mg/dL (8-21)
[2023-10-13] MEDS ORDERED: ATENOLOL 25 MG TABLET(TENORMIN) PO ONE (19:30)
[2023-10-13] MEDS ORDERED: METO25TA3 PO (21:10)
[2023-10-13 21:24] VITALS: BP_SYST 148; PULSE 84; RESP 22; TEMP 97.8; O2SAT 96
== END 2023-10-13 21:24 | disposition home or self-care (01) ==
LOC: SED 17:15
DX: R00.2 Palpitations (principal); R42 Dizziness and giddiness; R55 Syncope and collapse; Z79.899 Other long term (current) drug therapy
CPT/HCPCS: 36415; 71045; 80048; 84439; 84443; 84484; 85025; 85610-TC; 85730-TC; 93005; 96374; 99291; J3490

== ENCOUNTER 2024-02-07 02:21 | Emergency (ER) | payer BC ==
[~2024-02-07] VITALS: Ht 177.8 cm; Wt 136.1 kg
[~2024-02-07 02:21] MED LIST: METO25TA3 PO
[2024-02-07 02:28] VITALS: BP_SYST 152; PULSE 73; RESP 18; TEMP 98.1; O2SAT 99
[2024-02-07] MEDS ORDERED: dilTIAZem HCL IVP 5 MG/ML VIAL ONE (03:07)
[2024-02-07] MEDS: dilTIAZem HCL IVP 5 MG/ML VIAL IVP ONE ×2 (03:13→04:27)
[2024-02-07] MEDS: NACL 0.9% 1,000 ML IV ONE (03:18)
[2024-02-07 03:28] LABS: BASOPHILS # (AUTO) 0.1 K/uL (0.0-0.2); BASOPHILS % (AUTO) 0.9 % (0.0-2.0); EOSINOPHILS # (AUTO) 0.5 K/uL (0.0-0.4); EOSINOPHILS % (AUTO) 6.4 % (0.0-4.0); HEMATOCRIT 41.8 % (36-54); HEMOGLOBIN 14.5 g/dL (14.0-18.0); LYMPHOCYTES # (AUTO) 2.1 K/uL (1.0-5.5); LYMPHOCYTES % (AUTO) 27.3 % (20.5-51.5); MEAN CORPUSCULAR HEMOGLOBIN 29 pg (27-31); MEAN CORPUSCULAR HGB CONC 35 % (32-36); MEAN CORPUSCULAR VOLUME 82 fL (79.0-98.0); MONOCYTES # (AUTO) 0.7 K/uL (0.0-1.0); MONOCYTES % (AUTO) 8.9 % (1.7-9.3); NEUTROPHILS # (AUTO) 4.3 K/uL (1.8-7.7); NEUTROPHILS % (AUTO) 56.5 % (40.0-70.0); PLATELET COUNT (AUTO) 308 K/uL (130-430); RED CELL DISTRIBUTION WIDTH 15.8 % (9.0-15.0); WHITE BLOOD COUNT (AUTO) 7.7 K/uL (4.8-10.8)
[2024-02-07 03:49] LABS: ALANINE AMINOTRANSFERASE 64 U/L (12-78); ALBUMIN 3.3 g/dL (3.4-4.8); ANION GAP 12 (5-15); ASPARTATE AMINOTRANSFERASE 36 U/L (10-37); CALCIUM 8.3 mg/dL (8.4-11.0); CARBON DIOXIDE 26 mmol/L (23-29); CHLORIDE 105 mmol/L (98-107); CREATININE 1.01 mg/dL (0.55-1.30); GFR AFRICAN AMERICAN 107 mL/min (>90); GLUCOSE 153 mg/dL (74-106); SODIUM SERUM 143 mmol/L (136-145); TOTAL BILIRUBIN 0.7 mg/dL (0.0-1.0); TOTAL PROTEIN, SERUM 7.7 g/dL (6.4-8.3); UREA NITROGEN, BLOOD 12 mg/dL (8-21)
[2024-02-07 03:53] LABS: GFR NON AFRICAN-AMERICAN 88 mL/min (>90)
[2024-02-07] MEDS ORDERED: ASPI-859 PO (04:06)
[2024-02-07] MEDS: METOPROLOL TARTRATE 5 MG/5 ML VIAL IVP ONE (04:10)
[2024-02-07 04:56] VITALS: BP_SYST 119; PULSE 76; RESP 19; TEMP 98; O2SAT 94
== END 2024-02-07 04:56 | disposition home or self-care (01) ==
LOC: SED 02:21
DX: I48.0 Paroxysmal atrial fibrillation (principal); R03.0 Elevated blood-pressure reading, without diagnosis of hypertension; Z79.899 Other long term (current) drug therapy; Z79.2 Long term (current) use of antibiotics
CPT/HCPCS: 99291; 96374; 96361; 80053; 83880; 83735; 85025; 84484; 36415; 71045; 96376; J7030; J3490